=== PATIENT | male | born 1960 | race Asian ===

== ENCOUNTER 2021-04-13 09:15 | Emergency (ER) | payer MEDICAID ==
[~2021-04-13] VITALS: Ht 175.3 cm; Wt 113.6 kg
[2021-04-13 11:03] LABS: BASOPHILS % (AUTO) 0.4 % (0.0-2.0); EOSINOPHILS % (AUTO) 1.4 % (1.0-6.0); HEMATOCRIT 45.7 % (41-53); HEMOGLOBIN 14.9 g/dL (13.5-17.5); LYMPHOCYTES # (AUTO) 0.8 K/uL (1.0-4.8); LYMPHOCYTES % (AUTO) 8.5 % (22.0-44.0); MEAN CORPUSCULAR HEMOGLOBIN 28.5 pg (26.0-34.0); MEAN CORPUSCULAR HGB CONC 32.5 G/dL (31.0-37.0); MEAN CORPUSCULAR VOLUME 88 fL (80-100); MONOCYTES # (AUTO) 0.9 K/uL (0.1-1.0); MONOCYTES % (AUTO) 9.4 % (2.0-9.0); NEUTROPHILS # (AUTO) 7.4 K/uL (1.8-7.7); NEUTROPHILS % (AUTO) 80.3 % (40.0-70.0); PLATELET COUNT (AUTO) 245 K/uL (150-450); RED BLOOD CELL COUNT(AUTO) 5.22 MIL/uL (4.50-5.90)
[2021-04-13 11:13] LABS: CALCIUM, TOTAL 11.4 mg/dL (8.8-10.5); CREATININE 1.72 mg/dL (0.60-1.30); POTASSIUM 4.6 mmol/L (3.5-5.1)
[2021-04-13 11:18] LABS: ALBUMIN 3.5 g/dL (3.4-5.0); BILIRUBIN,TOTAL 0.5 mg/dL (0.1-1.0)
[2021-04-13 13:20] LABS: LACTIC ACID 2.2 mmol/L (0.4-2.0)
[2021-04-13] MEDS ORDERED: SODIUM CHLORIDE 0.9% 1,000 ML IV ONE ×2 (13:45→15:15)
[2021-04-13] MEDS ORDERED: OxyCODONE HCL/ACETAMINOPHEN 5-325 MG TABLET PO PRN (15:30)
[2021-04-13] MEDS ORDERED: DEXTROSE 50%-WATER 25 GM/50 ML SYRINGE IVP PRN (15:30)
[2021-04-13] MEDS ORDERED: ACETAMINOPHEN 325 MG TABLET PO PRN (15:30)
[2021-04-13] MEDS ORDERED: INSULIN LISPRO 100 UNITS/ML SQ PRN (15:30)
[2021-04-13] MEDS ORDERED: ONDANSETRON HCL 4 MG/2 ML VIAL IVP PRN (15:30)
[2021-04-13 15:48] LABS: GLUCOSE,POINT OF CARE 131 MG/DL (70-110)
[2021-04-13 15:59] LABS: INR 1.2 (0.9-1.1); PROTHROMBIN TIME 12.6 SEC (9.4-11.6)
[2021-04-13] MEDS ORDERED: ONDANSETRON HCL 4 MG/2 ML VIAL IVP ONE (17:30)
[2021-04-13] MEDS ORDERED: HYDROmorphone 2 MG/ML VIAL IVP PRN (17:30)
[2021-04-13] MEDS ORDERED: HYDROmorphone 2 MG/ML VIAL IVP ONE (17:30)
[2021-04-13 18:41] LABS: GLUCOSE,POINT OF CARE 171 MG/DL (70-110)
[2021-04-13 19:01] LABS: COVID AG,FIA SOURCE NASOPHARYNGEAL
[2021-04-13] MEDS ORDERED: DOCUSATE SODIUM 100 MG CAPSULE PO SCH (21:00)
[2021-04-13 21:06] VITALS: BP 137/68
[2021-04-14] MEDS ORDERED: FAMOTIDINE 20 MG TABLET PO SCH (09:00)
== END 2021-04-13 22:25 | disposition left against medical advice (07) ==
LOC: EMS 09:33
DX: N17.9 Acute kidney failure, unspecified (principal); L76.34 Postprocedural seroma of skin and subcutaneous tissue following other procedure; L02.31 Cutaneous abscess of buttock; R10.84 Generalized abdominal pain; Z20.822 Contact with and (suspected) exposure to COVID-19; Z87.19 Personal history of other diseases of the digestive system
CPT/HCPCS: 36415; 71045; 74176; 80053; 82962; 83605; 85025; 85610; 87040; 87426; 93005; 96361; 96374; 96375; 99291; J1170; J2405; J7030